=== PATIENT | female | born 1965 | race Caucasian/White ===

== ENCOUNTER 2016-11-18 05:05 | Day surgery (SDC) | payer OTHER ==
[2016-11-07 08:18] VITALS: BMI 37.0
--- NOTE | 2016-11-07 08:49 | PAT Medication Instructions ---
Service Date November 07, 2016. Current Home Medication List Biotin (Biotin), Unknown Dose QAM Calcium/Vitamin D (Os-Santo 500 Plus D), 1 TAB PO QAM Cholecalciferol (Vitamin D3), 1 TAB PO QAM Fluticasone Propionate (Nasal) (Flonase Allergy Relief), 2 PUFFS STEPAN QPM Gabapentin (Neurontin), 300 MG PO QPM Meclizine Hcl (Meclizine Hcl), 1 TAB PO qday PRN for vertigo Multiple Vitamins W/ Minerals (Multi For Her 50+), 1 TAB PO QAM Ropinirole (Requip), 1 MG PO HS Simvastatin (Zocor), 20 MG PO QPM [lozenger for thrush ], Unknown Dose Medication Instructions For Your Scheduled Surgery - Hold the following medications the morning of surgery: [lozenger for thrush ], Unknown Dose Multiple Vitamins W/ Minerals (Multi For Her 50+), 1 TAB PO QAM Calcium/Vitamin D (Os-Santo 500 Plus D), 1 TAB PO QAM Cholecalciferol (Vitamin D3), 1 TAB PO QAM Biotin (Biotin), Unknown Dose QAM - Take the following medications the morning of surgery with a sip of water: Meclizine Hcl (Meclizine Hcl), 1 TAB PO qday PRN for vertigo (if needed) - Hold the following medications as scheduled the night before surgery: Ropinirole (Requip), 1 MG PO HS - Take the following medications as scheduled the night before surgery: [lozenger for thrush ], Unknown Dose Simvastatin (Zocor), 20 MG PO QPM Meclizine Hcl (Meclizine Hcl), 1 TAB PO qday PRN for vertigo (if needed) Gabapentin (Neurontin), 300 MG PO QPM Fluticasone Propionate (Nasal) (Flonase Allergy Relief), 2 PUFFS STEPAN QPM If you have any questions please call us at [phone] (Cora Gonzalez PA-C ) or [phone] or [phone]
[2016-11-07 10:55] LABS: BASO % 0.2 %; BASO ABS # 0.01 K/uL (0-0.2); COMPLETE YES; EOS % 3.1 %; HEMATOCRIT 41.3 % (37-47); IG% 0.6 %; LYMPH % 30.4 %; LYMPH ABS # 1.47 K/uL (1.2-3.4); MEAN CELL VOLUME 85.7 fL (80-100); MEAN CORPUSCULAR HEMOGLOBIN 27.4 pg (25-34); MEAN PLATELET VOLUME 10.4 fL (7.4-10.4); MONO % 6.6 %; NEUT % 59.1 %; PLATELET COUNT 270 K/uL (130-400); RED BLOOD COUNT 4.82 M/uL (4.2-5.4); WHITE BLOOD COUNT 4.83 K/uL (4.8-10.8)
[2016-11-07 11:03] LABS: BUN/CREATININE RATIO 26.7 (10-20); CREATININE 0.54 mg/dl (0.60-1.20); POTASSIUM 4.3 mmol/L (3.5-5.1)
[2016-11-07 11:14] LABS: CALCIUM 9.3 mg/dl (8.5-10.1)
--- NOTE | 2016-11-17 14:27 | History and Physical ---
History & Physical Date November 17, 2016. Chief Complaint sleep apnea History of Present Illness The patient is a 50 year old female with complaints of obstructive sleep apnea, unable to tolerate CPAP Additional History Hepatic Disease: No Endocrine Disorder: No Kidney Disease: No Hypertension: No Heart Disease: No Bleeding Tendencies: No Infectious Diseases: No Allergies Coded Allergies: No Known Allergies (Unverified , 11/07/16) Home Medications Scheduled Biotin (Biotin), Unknown Dose QAM Calcium/Vitamin D (Os-Santo 500 Plus D), 1 TAB PO QAM Cholecalciferol (Vitamin D3), 1 TAB PO QAM Fluticasone Propionate (Nasal) (Flonase Allergy Relief), 2 PUFFS STEPAN QPM Gabapentin (Neurontin), 300 MG PO QPM Multiple Vitamins W/ Minerals (Multi For Her 50+), 1 TAB PO QAM Ropinirole (Requip), 1 MG PO HS Simvastatin (Zocor), 20 MG PO QPM Scheduled PRN Meclizine Hcl (Meclizine Hcl), 1 TAB PO qday PRN for vertigo Miscellaneous Medications [lozenger for thrush ], Unknown Dose Physical Examination Skin: warm/dry, no rash Eyes: normal inspection, EOMI, sclerae normal ENT: normal ENT inspection, pharynx normal Head: normocephalic, atraumatic Neck: supple, no adenopathy, trachea midline Respiratory/Chest: lungs clear, normal breath sounds, no respiratory distress Cardiovascular: regular rate, rhythm, no edema, no murmur Abdomen / GI: normal bowel sounds, non tender Back: normal inspection Extremities: normal inspection, normal range of motion Neurologic/Psych: no motor/sensory deficits, alert, normal reflexes, oriented x 3 Diagnosis sleep apnea Plan of Treatment tonsillectomy with uvulopalatopharyngoplasty
[~2016-11-18] VITALS: Ht 154.9 cm; Wt 90.1 kg
[~2016-11-18 05:05] MED LIST: BIOT1CAP8; CALC500C70 PO; CHOL20007 PO; FLUT0.15 NAE; GABA-113 PO; MECL1TAB42 PO; MULT-223 PO; ROPI1TAB PO; SIMV20TA2 PO; [UNRECOGNIZED DRUG - REMARK]
[2016-11-18 05:39] VITALS: BP 106/69; PULSE 63; TEMP 36.5; O2SAT 94; Ht 154.9 cm; Wt 90.1 kg
[2016-11-18] MEDS ORDERED: CEFAZOLIN 2000 MG/60 ML D5W IV SCH (06:00)
[2016-11-18] MEDS ORDERED: LACTATED RINGER'S 1000ML 1,000 ML IV SCH (06:00)
[2016-11-18] MEDS ORDERED: LIDOCAINE HCL 2% 2 ML VIAL (20MG/ML) ONE (06:59)
[2016-11-18] MEDS ORDERED: ROCURONIUM BROMIDE 10 MG/ML 5 ML VIAL ONE (06:59)
[2016-11-18] MEDS ORDERED: PROPOFOL IV EMULSION 10 MG/ML 20 ML VIAL IV ONE (06:59)
[2016-11-18] MEDS ORDERED: FENTANYL CITRATE INJ 50 MCG/1 ML 2 ML VIAL ONE ×3 (07:00→09:49)
[2016-11-18] MEDS ORDERED: MIDAZOLAM HCL 1 MG/ML 2ML VIAL ONE (07:00)
[2016-11-18] MEDS ORDERED: BUPIVACAINE/EPINEPHRINE 0.5% MPF 1:200,000 30 ML VIAL ONE (07:07)
--- NOTE | 2016-11-18 07:12 | History & Physical Bridge Note ---
H&P Re-Evaluation Bridge Note: I have examined the patient, reviewed the History & Physical and in the interval since the performance of the History & Physical I have noted the following changes of clinical significance: No changes noted
[2016-11-18] MEDS ORDERED: DEXAMETHASONE SOD INJ 4 MG/ML VIAL ONE (07:33)
[2016-11-18] MEDS ORDERED: NEOSTIGMINE METHYLSULFATE 5 MG/5 ML SYR ONE (07:33)
[2016-11-18] MEDS ORDERED: GLYCOPYRROLATE INJ 0.2 MG/ML VIAL ONE ×2 (07:33→07:53)
[2016-11-18] MEDS ORDERED: ONDANSETRON INJ 2 MG/ML 2 ML VIAL ONE (07:33)
[2016-11-18] MEDS ORDERED: EpHEDrine SULFATE 50MG/5ML SYR ONE (07:53)
[2016-11-18] MEDS ORDERED: SODIUM CHLORIDE 0.9% 1000ML 1,000 ML IV SCH (08:03)
[2016-11-18] MEDS ORDERED: HYDR1SOL10 PO (08:06)
--- NOTE | 2016-11-18 08:07 | Discharge Instructions-SurgCtr ---
Discharge Instructions Date of Service November 18, 2016. Visit Reason for Visit: Obstructive Sleep Apnea Discharge Discharge Diagnosis / Problem: same Discharge Goals Goal(s): Improve function Activity Recommendations Activity Limitations: resume your previous activity Anesthesia . Post Anesthesia Instructions: If you have had General Anesthesia or IV Sedation: * Do not drive today. * Resume driving when surgeon permits. * Do not make important decisions or sign legal documents today. * Call surgeon for: 1. Temperature elevations greater than 101 degrees F. 2. Uncontrollable pain. 3. Excessive bleeding. 4. Persistent nausea and vomiting. 5. Medication intolerance (nausea, vomiting or rash). * For nausea and vomiting use only clear liquids such as: tea, soda, bouillon until nausea subsides, then gradually increase diet as tolerated. * If you have any concerns or questions, call your surgeon's office. If physician is unavailable and it is an emergency, call [phone] or go to the nearest emergency room. . Instructions / Follow-Up Instructions / Follow-Up ACTIVITY RECOMMENDATIONS: * During the first few days, activities should be limited. * Stay indoors for several days. * After 48 hours, activity can gradually be increased to normal activity. RETURN TO SCHOOL/WORK: * Return to school or work in one week. * No physical education for two weeks. OVER THE COUNTER MEDICATIONS: * You may use Tylenol * Avoid aspirin or aspirin containing products, e.g. as they may increase bleeding. SPECIAL CARE INSTRUCTIONS: * Avoid coughing or clearing the throat. * Do not use a straw. * A sore throat is expected frequently accompanied by pain radiating to the ears. This is normal. * Expect bad breath until "scabs" are healed. * Notify the doctor if bleeding occurs, vomiting, temperature greater than 101 degrees Fahrenheit. Call or cell phone: . * If bleeding occurs, it is usually in the first 24 hours or after the 5th day. If unable to reach the doctor, go to the nearest Emergency Department. Special Diet: * Fluids are very important and should be encouraged to maintain adequate hydration. * To maintain nutrition, eat soft foods and after 48 hours the consistency of foods can be increased. Examples are jello, soup, pasta, ice cream and mashed foods. FOLLOW UP VISIT: Follow-up visit with Dr. Ritchie in 2 weeks. Please call to schedule if not already scheduled. Diet Recommendations Home Diet: special diet Diet Texture: Mechanical Soft (ground) Procedures Procedures Performed: Tonsillectomy and Uvulopalatalpharyngoplasty Pending Studies Studies pending at discharge: no Medical Emergencies . Who to Call and When: Medical Emergencies: If at any time you feel your situation is an emergency, please call 911 immediately. . Non-Emergent Contact Non-Emergency issues call your: Primary Care Provider . . "Provider Documentation" section prepared by Aisha Ritchie. [facility] Search Results: no issues identified
[2016-11-18] MEDS ORDERED: ACETAMINOPHEN/HYDROCODONE ELIX 15 ML/CUP UDP PO PRN (08:15)
[2016-11-18] MEDS ORDERED: MEPERIDINE HCL 25 MG/ML CARP IV PRN (08:30)
[2016-11-18] MEDS ORDERED: HYDROmorphone INJ 1 MG/ML SYR IV PRN (08:30)
[2016-11-18] MEDS ORDERED: LABETALOL HCL IV 5 MG/ML 20ML IV PRN (08:30)
[2016-11-18] MEDS ORDERED: ONDANSETRON INJ 2 MG/ML 2 ML VIAL IV PRN (08:30)
[2016-11-18] MEDS ORDERED: FENTANYL CITRATE INJ 50 MCG/1 ML 2 ML VIAL IV PRN (08:30)
[2016-11-18] MEDS ORDERED: EpHEDrine SULFATE INJ 50 MG/ML AMP IV PRN (08:30)
[2016-11-18] MEDS ORDERED: ATROPINE SULFATE 0.1 MG/ML 5ML SYR IV PRN (08:30)
[2016-11-18 09:00] VITALS: BP 97/52; PULSE 58; TEMP 36.8; O2SAT 97
--- NOTE | 2016-11-18 09:17 | Anesthesiology Progress Note ---
Anesthesia Post Op Note Date & Time November 18, 2016 at 09:17 Vital Signs Pain Intensity: 3 Vital Signs Past 12 Hours Date Time Temp Pulse Resp B/P Pulse Ox O2 Delivery O2 Flow Rate FiO2 11/18/16 08:55 36.6 57 12 111/70 96 Room Air 11/18/16 08:45 70 16 115/71 92 Room Air 11/18/16 08:35 60 13 131/72 99 Mask 10 11/18/16 08:25 60 13 134/71 100 Mask 10 11/18/16 08:17 36.2 60 18 133/72 100 Mask 10 11/18/16 05:39 36.5 63 20 106/69 94 Room Air Notes Mental Status: alert / awake / arousable, participated in evaluation Pt Amnestic to Procedure: Yes Nausea / Vomiting: adequately controlled Pain: adequately controlled Airway Patency, RR, SpO2: stable & adequate BP & HR: stable & adequate Hydration State: stable & adequate Anesthetic Complications: no major complications apparent
[2016-11-18 09:30] VITALS: BP 113/62; PULSE 75; O2SAT 93
[2016-11-18 10:00] VITALS: BP 111/69; PULSE 64; O2SAT 93
--- NOTE | 2016-11-18 11:30 | OPERATIVE REPORT ---
DATE OF OPERATION: 11/18/2016 PREOPERATIVE DIAGNOSIS: Obstructive sleep apnea. POSTOPERATIVE DIAGNOSIS: Same. PROCEDURE: Adenotonsillectomy with uvulopalatopharyngoplasty. SURGEON: Dr. Ritchie. ANESTHESIA: General endotracheal. COMPLICATIONS: None. BLOOD LOSS: Less than 50 mL. HISTORY OF PRESENT ILLNESS: This 50-year-old lady presented with significant sleep apnea and inability to wear her CPAP. DESCRIPTION OF PROCEDURE: The patient brought to the operating room, placed in the supine position. General endotracheal anesthesia was induced, prepped, draped in the usual sterile manner. Soft palate retracted using a red Chris catheter. Local injection 0.5% Sensorcaine with 1:200,000 strength epinephrine was used. Adenoidectomy was performed using the plasma knife. The tonsillectomies were performed using the plasma knife, opening up the anterior and posterior pillar and resecting the tonsil using the plasma knife, controlling hemostasis with coagulation portion of the plasma knife. The soft palate was resected of its redundant portion inferiorly and also of the anterior surface and part of the muscularis of the uvula. The flaps were cut into the palatoglossus fold and into the palatopharyngeus fold with a V cut in the palatoglossus fold and a flap cut into the palatopharyngeus fold. The palatopharyngeus flaps were rotated laterally into the V cut in the palatoglossus fold. Uvula was sewn up on itself on to the soft palate. All the mucosa edges were approximated with running 2-0 chromic sutures. The pharynx was irrigated clean with saline. The patient tolerated the procedure well and was taken to recovery area in satisfactory condition. I attest to the content of the Intraoperative Record and any orders documented therein. Any exceptio ns are noted below.
== END 2016-11-18 10:30 | disposition home or self-care (01) ==
LOC: C.ACU 05:05
PROVIDERS: ATTEND Otolaryngology
DX: G47.33 Obstructive sleep apnea (adult) (pediatric) (principal)